=== PATIENT | male | born 1965 | race Caucasian/White ===

== ENCOUNTER → 2024-11-13 | Day surgery (SDC) | payer MEDICAID ==
[~2024-11-13] VITALS: Ht 180.3 cm; Wt 122.0 kg
[~2024-11-13] MED LIST: ALLO100T PO; AMLO10TA80 PO; BALANCED SALT IRRIG SOLN COMB1 500ML OP NR; COR6 PO; CYCLOPENTOLATE HCL 1% OPHTH DROPS 2ML LEFTEYE NR; CYCLOPENTOLATE HCL 1% OPHTH DROPS 2ML LEFTEYE ONE; DAPA10TA PO; DILT120T2 PO; DULA1.5P SQ; EPINEPHRINE 1:1000 1 MG/ML AMP ONE; GABA-290 PO; HYALURONATE SODIUM 10MG/ML 0.55ML SYRINGE IO ONE; LOSA25TA26 PO; ONDANSETRON HCL 4MG/2ML INJ IV PRN; PHENYLEPHRINE HCL 10% OPHTH DROPS 5ML LEFTEYE NR; PHENYLEPHRINE HCL 10% OPHTH DROPS 5ML LEFTEYE ONE; PROPOFOL 200MG/20ML VIAL IV ONE; SODIUM CHLORIDE 0.9% 1,000 ML IV SCH; TROPICAMIDE 1% OPHTH DROPS 15ML LEFTEYE NR; TROPICAMIDE 1% OPHTH DROPS 15ML LEFTEYE ONE
[2024-11-13 11:07] LABS: BASOPHILS % 1.2 % (0.0-2.0); EOSINOPHILS % 4.5 % (0.0-5.0); HEMATOCRIT. 45.4 % (42.0-52.0); HEMOGLOBIN. 15.1 g/dL (14.0-18.0); LYMPHOCYTES % 17.8 % (20.0-50.0); MEAN PLATELET VOLUME 8.6 fl (7.4-10.4); MONOCYTES % 7.1 % (2.0-8.0); NEUTROPHILS % 69.4 % (40.0-76.0); PLATELET 151 x1000/uL (130-400); RED BLOOD CELL COUNT 5.21 mill/uL (4.7-6.1); RED CELL DISTRIBUTION WIDTH 13.9 % (11.6-14.6)
[2024-11-13 11:20] LABS: CREATININE 1.2 mg/dL (0.6-1.3); UREA NITROGEN BLOOD 14 mg/dL (9-23)
[2024-11-13] MEDS: SODIUM CHLORIDE 0.9% 1,000 ML IV SCH (11:39)
== END | disposition home or self-care (01) ==
LOC: OR 10:21
PROVIDERS: ATTEND Ophthalmology
DX: E11.36 Type 2 diabetes mellitus with diabetic cataract (principal); H25.012 Cortical age-related cataract, left eye; I10 Essential (primary) hypertension; M10.9 Gout, unspecified; Z79.84 Long term (current) use of oral hypoglycemic drugs; Z79.899 Other long term (current) drug therapy; Z98.890 Other specified postprocedural states
CPT/HCPCS: 67005; 80048; 85025; 36415; 66984; J3490 ×2; J2704; V2632